=== PATIENT | female | born 1945 | race Caucasian/White ===

== ENCOUNTER → 2016-08-13 | Outpatient (CLI) | payer OTHER | LOC: BHFA 10:45 | PROVIDERS: ATTEND Internal Medicine Cardiovascular Disease | DX: I48.91 Unspecified atrial fibrillation (principal) ==

== ENCOUNTER 2016-12-28 09:11 | Emergency (ER) | payer OTHER, MEDICARE ==
[2016-12-28 09:17] VITALS: RESP 18; TEMP 98.2
--- NOTE | 2016-12-28 09:49 | CPEKG ---
Heart Rate: 67 RR Interval: 896 P-R Interval: 184 QRSD Interval: 96 QT Interval: 416 QTC Interval: 439 P [place]: 52 QRS [place]: -34 T Wave [place]: 96 EKG Severity - ABNORMAL ECG - EKG Impression: SINUS RHYTHM EKG Impression: LEFT AXIS DEVIATION EKG Impression: ABNRM R PROG, CONSIDER ASMI OR LEAD PLACEMENT EKG Impression: BORDERLINE T ABNORMALITIES, ANTERIOR LEADS Electronically Signed By: Katty Trinidad 28-Dec-2016 15:32:24
--- NOTE | 2016-12-28 09:59 | EDPHY ---
H & P Stated Complaint: Intermittent pain R shoulder blade;relieved w/heating pad - Personal History Current Tetanus Diphtheria and Acellular Pertussis (TDAP): Yes Tetanus Vaccine Date: 2009 - Medical/Surgical History Hx Asthma: No Hx Chronic Respiratory Disease: No Hx Diabetes: No Hx Cardiac Disease: Yes Hx Renal Disease: No Hx Cirrhosis: No Hx Alcoholism: No Hx HIV/AIDS: No Hx Splenectomy or Spleen Trauma: No Other PMH: HTN, CAD, Afib, overian cyst removal, ANGEL (cpap); basal cell CA removal from scalp, scalp cyst removed, pre-diabetic; essential tremors (head) - Social History Smoking Status: Never smoked Time Seen by Provider: 12/28/16 09:21 HPI/ROS: CHIEF COMPLAINT: Right subscapular pain times 24 hours HISTORY OF PRESENT ILLNESS: 71-year-old female history of paroxysmal atrial fibrillation, hypertension, awoke yesterday morning with right subscapular pain. The pain is described as intermittent, sharp. It is sometimes reproducible with range of motion; however, sometimes it will occur spontaneously. It is not pleuritic however. She has no radiation of pain. No abdominal pain. No nausea or vomiting. No syncope or near syncope. No headache. No chest pain. No dyspnea. No trauma. No rash no vesicles. No neck pain. PRIMARY CARE PROVIDER:Dr. Filiberto Cornejo REVIEW OF SYSTEMS: A ten point review of systems was performed and is negative with the exception of the items mentioned in the HPI PAST MEDICAL & SURGICAL HISTORY: Paroxysmal atrial fibrillation with ablation in February 2016 at [facility] SOCIAL HISTORY: nonsmoker no drug use . PhD in literature PHYSICAL EXAM (Prior to examination, patient consented to physical exam, hands were washed and my usual and customary physical exam procedures followed) 1) GENERAL: Well-developed, well-nourished, alert and oriented. Appears to be in no acute distress. 2) HEAD: Normocephalic, atraumatic 3) HEENT: Pupils equal, round, reactive to light bilaterally. Sclera anicteric. Nasopharynx, oropharynx, clear, no lesions. Ears bilaterally with normal tympanic membranes. 4) NECK: Full range of motion, no meningeal signs. 5) LUNGS: Clear auscultation bilaterally, no wheezes, no rhonchi, no retractions. 6) HEART: Regular rate and rhythm, no murmur, no heave, no gallop. 7) ABDOMEN: No guarding, no rebound, no focal tenderness, negative McBurney's, negative Means's, negative Rovsing's, negative peritoneal sign, 8) MUSCULOSKELETAL: Moving all extremities, no focal areas of tenderness, no obvious trauma. No peripheral edema or discoloration. 9) BACK: No CVA tenderness, no midline vertebral tenderness, no fluctuance, no step-off, no obvious trauma, no visual or palpable abnormality. I am unable to elicit /reproduce pain with palpation including the subscapular region. There are no lesions, no vesicles. 10) SKIN: No rash, no petechiae. 11) Psychiatric: Patient is oriented X 3, there is no agitation. DIFFERENTIAL DIAGNOSIS: in no particular include but limited to pulmonary embolus, MS, aortic dissection, zoster, muscle strain, radiculopathy (Shantelle,Zane [place]) Constitutional: Initial Vital Signs Temperature (C) 36.8 C 12/28/16 09:12 Heart Rate 69 12/28/16 09:12 Respiratory Rate 18 12/28/16 09:12 Blood Pressure 182/68 H 12/28/16 09:12 O2 Sat (%) 95 12/28/16 09:12 O2 Delivery Mode Room Air Allergies/Adverse Reactions: Beta-Blockers (Beta-Adrenergic Bloc Allergy (Unknown, Verified 12/28/16 09:17) cefuroxime axetil [From Ceftin] Allergy (Unknown, Verified 12/28/16 09:17) clonidine Allergy (Unknown, Verified 12/28/16 09:17) epinephrine Allergy (Verified 12/28/16 09:17) erythromycin base [Erythromycin Base] Allergy (Verified 12/28/16 09:17) ibuprofen Allergy (Verified 12/28/16 09:17) nifedipine [From Procardia] Allergy (Verified 12/28/16 09:17) ofloxacin [From Floxin] Allergy (Verified 12/28/16 09:17) cardiolite (radioactive dye) Allergy (Uncoded 09/28/15 17:07) Home Medications: Medication Instructions Recorded Ascorbic Acid [Vitamin C 500 mg 500 mg PO DAILY20 02/23/13 (*)] Aspirin [Aspirin 81mg (*)] 81 mg PO DAILY 02/23/13 Benazepril HCl [Lotensin (*)] 40 mg PO DAILY 02/23/13 Hydrochlorothiazide [HCTZ (*)] 25 mg PO DAILY 02/23/13 Multivitamins [Multivitamin (*)] 1 each PO DAILY20 02/23/13 Spironolactone [Aldactone 25 MG 12.5 mg PO DAILY 02/23/13 (*)] amLODIPine BESYLATE [Norvasc 5 mg 5 mg PO DAILY 02/23/13 (*)] Cholecalciferol Vit D3 [Vitamin D3 2,000 units PO DAILY20 04/02/13 (*)] Diltiazem [Cardizem 60 MG (*)] 60 mg PO AD PRN 04/02/13 Herbals/Supplements -Info Only 1 ea PO HS 08/14/14 Doxycycline Hyclate 100 mg PO BID #14 tab 02/05/16 Medical Decision Making - Diagnostics EKG Interpretation: 12 lead EKG is interpreted in Trace master View by emergency department physician. (Katty Trinidad) Imaging Results: Imaging Impressions Chest X-Ray 12/28/16 09:29 Impression: No acute abnormality. Chest/Thorax CTA 12/28/16 10:45 Impression: 1. No evidence of thrombopulmonary embolic disease. 2. Clear lungs. No acute process. 3. No bone lesion or fracture to explain right-sided pain. Findings discussed with Emergency Department physician, Joce Pepper PA-C on December 28, 2016 at 1143 hours. Images reviewed myself (Zane Pepper) ED Course/Re-evaluation: 11:00 a.m.: Discussed case Dr. Katty Trinidad in the ER. I discussed with patient her elevated D-dimer. Recommended CT imaging to evaluate possible pulmonary embolus. I spent a period of time discussed the indications risks benefits with the patient. States that several years ago which she develops hives and nausea after receiving IV contrast. She states that she did not have an allergic reaction at that time did not experience respiratory complaints. I offered to premedicate with Benadryl and antiemetic which she declines. She verbalizes understanding and acceptance of the indications risks benefits and consents to CT imaging 1:14 p.m.: Patient has been re-evaluated with serial exams. Was also seen exam by Dr. Katty Trinidad in the emergency department. The patient and I discussed her negative CT angiogram negative for pulmonary embolus, negative for aortic dissection. We also discussed her troponin which is negative at 24 hours after her initial presenting symptoms. She also has normal sinus rhythm although she does have a history of paroxysmal atrial fibrillation with ablation in the past. I think that cardiac etiology such as myocardial infarction is less than likely in this patient. She also inquired about whether symptoms could be secondary to hepatic dysfunction or pancreatic dysfunction. She has had no complaints of abdominal pain, no nausea no vomiting has normal LFTs and lipase. I therefore think that these are less than likely. We discussed possibility of acute muscular strain, possibility of early zoster with no clinical/visible manifestation. I think the patient can be discharged home with usual customary precautions. She feels comfortable with this plan. (Zane Pepper) This patient was evaluated and managed by the physician circulation assistant, in conjunction with me. I am the secondary supervising physician. I agree with the plan of care. The patient reports right lateral subscapular pain, no trauma, not pleuritic. Evaluation includes EKG and troponin--no evidence of ACS. D dimer elevated, CTA of chest negative for PE. No evidence of PTX OR PNA. At the time of my interview and exam she is resting comfortably. Heart with RRR, lungs CTA, abdomen soft and nontender. I agree with the ED evaluation. (Katty Trinidad) - Data Points Laboratory Results: Laboratory Results 12/28/16 09:56 12/28/16 09:56 Departure - Departure Disposition: Home, Routine, Self-Care Clinical Impression: Pain of right scapula Condition: Good Instructions: Back Pain (ED) Additional Instructions: Return to the emergency department if you develop chest pain, shortness of breath, abdominal pain, nausea, vomiting, rash or any other symptoms that concern you. Referrals: Filiberto Cornejo MD [Primary Care Provider] - 1-2 days without fail
[2016-12-28 10:02] LABS: % IMMATURE GRANULYOCYTES 0.7 % (0.0-1.1); ABSOLUTE IMMATURE GRANULOCYTES 0.09 10^3/uL (0.00-0.10); ADD DIFF? NO; ADD MORPH? NO; ADD SCAN? NO; ATYPICAL LYMPHOCYTE FLAG 10 (0-99); FRAGMENT RBC FLAG 0 (0-99); HEMATOCRIT 45.1 % (38.0-47.0); HEMOGLOBIN 15.3 g/dL (12.6-16.3); LEFT SHIFT FLG 0 (0-99); LIPEMIA HEMOLYSIS FLAG 90 (0-99); MEAN CELL HEMOGLOBIN 29.9 pg (27.9-34.1); MEAN CELL HEMOGLOBIN CONCENTR. 33.9 g/dL (32.4-36.7); MEAN CELL VOLUME 88.1 fL (81.5-99.8); MEAN PLATELET VOLUME 9.1 fL (8.7-11.7); PLATELET CLUMPS FLAG 0 (0-99); PLATELET COUNT 305 10^3/uL (150-400); RED BLOOD CELL COUNT 5.12 10^6/uL (4.18-5.33); RED CELL DISTRIBUTION WIDTH 13.4 % (11.5-15.2)
[2016-12-28 10:34] LABS: ALANINE AMINOTRANSFERASE 30 IU/L (9-52); ALBUMIN 4.6 g/dL (3.5-5.0); ALKALINE PHOSPHATASE 84 IU/L (38-126); ANION GAP 15 mEq/L (8-16); ASPARTATE AMINOTRANSFERASE 24 IU/L (14-46); BILIRUBIN,TOTAL 0.5 mg/dL (0.1-1.4); BILIRUBIN-CONJUGATED 0.2 mg/dL (0.0-0.5); BILIRUBIN-UNCONJUGATED 0.3 mg/dL (0.0-1.1); CALCIUM 10.1 mg/dL (8.5-10.4); CARBON DIOXIDE 22 mEq/l (22-31); CHLORIDE 102 mEq/L (97-110); CREATININE 0.6 mg/dL (0.6-1.0); GLOMERULAR FILTRATION RATE > 60; GLUCOSE 158 mg/dL (70-100); POTASSIUM 3.8 mEq/L (3.5-5.2); SODIUM 139 mEq/L (134-144); TOTAL PROTEIN 8.4 g/dL (6.3-8.2)
[2016-12-28 10:45] LABS: TROPONIN I < 0.012 ng/mL (0-0.034)
[2016-12-28] MEDS ORDERED: IOPAMIDOL (ISOVUE 370) 100 ML BTL IV ONE (10:59)
[2016-12-28 13:36] VITALS: BP 151/62; PULSE 58; O2SAT 91
== END 2016-12-28 13:36 | disposition home or self-care (01) ==
DX: M25.511 Pain in right shoulder (principal); I10 Essential (primary) hypertension; I25.10 Atherosclerotic heart disease of native coronary artery without angina pectoris; Z79.82 Long term (current) use of aspirin; Z85.828 Personal history of other malignant neoplasm of skin
CPT/HCPCS: 71020; 71275; 93005; 99285; Q9967

== ENCOUNTER 2017-03-05 07:54 | Emergency (ER) | payer OTHER, MEDICARE ==
--- NOTE | 2017-03-05 08:09 | CPEKG ---
Heart Rate: 131 RR Interval: 458 P-R Interval: 79 QRSD Interval: 82 QT Interval: 308 QTC Interval: 455 P [place]: 0 QRS [place]: -57 T Wave [place]: 144 EKG Severity - ABNORMAL ECG - EKG Impression: SINUS TACHYCARDIA EKG Impression: PROBABLE INFERIOR INFARCT, OLD EKG Impression: CONSIDER ANTERIOR INFARCT EKG Impression: REPOL ABNRM SUGGESTS ISCHEMIA, DIFFUSE LEADS Electronically Signed By: Irene Hernández 05-Mar-2017 15:36:37
--- NOTE | 2017-03-05 08:29 | EDPHY ---
H & P Time Seen by Provider: 03/05/17 08:16 HPI/ROS: CHIEF COMPLAINT: AFib HISTORY OF PRESENT ILLNESS: The patient is a 71-year-old female with a history of AFib who presents emergency department with palpitations. Patient states that she intermittently goes into atrial fibrillation. Last night at approximately 9:30 a.m. she developed palpitations in atrial fibrillation. She took diltiazem 30 mg orally. This is her rescue medication and she follow the instructions of her chief wheelage clerk. At 10:30 a.m. she still was in atrial fibrillation and she took an additional diltiazem 30 mg orally. At 11:30 a.m. she continued to be in atrial fibrillation and took diltiazem 60 mg orally. She then converted at midnight. She woke at 3:20 a.m. again with palpitations and AFib. She spoke with Dr. schultz on the phone. He instructed her to take diltiazem 30 mg orally. She subsequently converted. She woke this morning at 6 :20 a.m.. Soon after waking she again went back into atrial fibrillation with palpitations. She has no chest pain. She describes mild hand tingling. No nausea or vomiting. No shortness of breath. Patient states that she had an ablation last year. REVIEW OF SYSTEMS: My complete review of systems is negative except as mentioned in the HPI. Past Medical/Surgical History: Includes hypertension, coronary artery disease, AFib, ovarian cyst, basal cell carcinoma, prediabetes, central tremors Past surgical history: Includes ovarian cyst surgery Social history: The patient does not smoke. Smoking Status: Never smoked Physical Exam: 36.8, 166/119, 127, 17, 93% on room air GENERAL: Well-appearing, in no acute distress, alert. HEENT: Eyes normal to inspection, normal pharynx, no signs of dehydration. NECK: No thyromegaly, no lymphadenopathy, supple. RESPIRATORY: Clear to auscultation bilaterally, no rales, rhonchi or wheezing. CVS: the regular rhythm and tachycardia, no rubs, murmurs, or gallops. ABDOMEN: Soft, nontender, nondistended, no organomegaly. BACK: Normal to inspection, no CVA tenderness. SKIN: Normal color, no rash, warm, dry. No pallor. EXTREMITIES: No pedal edema, no calf tenderness, no Homans sign or cords, no joint swelling. NEURO/PSYCH: Alert and oriented, normal mood and affect, normal motor sensory exam. No obvious cranial nerve deficit. Constitutional: Initial Vital Signs Temperature (C) 36.8 C 03/05/17 07:57 Heart Rate 127 H 03/05/17 07:57 Respiratory Rate 17 03/05/17 07:57 Blood Pressure 166/119 H 03/05/17 07:57 O2 Sat (%) 93 03/05/17 07:57 O2 Delivery Mode Room Air Allergies/Adverse Reactions: Beta-Blockers (Beta-Adrenergic Bloc Allergy (Unknown, Verified 12/28/16 09:17) cefuroxime axetil [From Ceftin] Allergy (Unknown, Verified 12/28/16 09:17) clonidine Allergy (Unknown, Verified 12/28/16 09:17) epinephrine Allergy (Verified 12/28/16 09:17) erythromycin base [Erythromycin Base] Allergy (Verified 12/28/16 09:17) ibuprofen Allergy (Verified 12/28/16 09:17) nifedipine [From Procardia] Allergy (Verified 12/28/16 09:17) ofloxacin [From Floxin] Allergy (Verified 12/28/16 09:17) cardiolite (radioactive dye) Allergy (Uncoded 09/28/15 17:07) Home Medications: Medication Instructions Recorded Ascorbic Acid [Vitamin C 500 mg 500 mg PO DAILY20 02/23/13 (*)] Aspirin [Aspirin 81mg (*)] 81 mg PO DAILY 02/23/13 Benazepril HCl [Lotensin (*)] 40 mg PO DAILY 02/23/13 Hydrochlorothiazide [HCTZ (*)] 25 mg PO DAILY 02/23/13 Multivitamins [Multivitamin (*)] 1 each PO DAILY20 02/23/13 Spironolactone [Aldactone 25 MG 12.5 mg PO DAILY 02/23/13 (*)] amLODIPine BESYLATE [Norvasc 5 mg 5 mg PO DAILY 02/23/13 (*)] Cholecalciferol Vit D3 [Vitamin D3 2,000 units PO DAILY20 04/02/13 (*)] Diltiazem [Cardizem 60 MG (*)] 60 mg PO AD PRN 04/02/13 Herbals/Supplements -Info Only 1 ea PO HS 08/14/14 Doxycycline Hyclate 100 mg PO BID #14 tab 02/05/16 Apixaban [Eliquis] 5 mg PO BID #30 tab 03/05/17 Medical Decision Making ED Course/Re-evaluation: In the emergency department I discussed possible etiologies with the patient. Laboratory studies and EKG were obtained. Patient was given aspirin orally. EKG showed irregular tachycardia at 131. There was notable ST depression in I, II, V4-V6 Patient had a fairly regular rhythm that appeared to be atrial flutter rather than atrial fibrillation. I paged Cardiology to discuss their preference as the patient has already received [address] Hui came to the emergency department to evaluate the patient. By the time he arrived the patient had converted to sinus rhythm. He recommend the patient have further workup. Informed that he needs to return to his clinic and the PA would return to the emergency department for further evaluation. I discussed this update with the patient 1000: Dr. Hui return to the emergency department to evaluate the patient. 1010: I discussed the case with Dr. Hui. He recommends discharge for the patient. She has a follow-up appoint with Dr. Price. He recommend the patient start on Eliquis 5 mg twice daily. I discussed the plan with the patient. She is well formed. She agrees with the plan. She states she understood the discussion and plan with Dr. Hui. She was given a prescription for Eliquis. Differential Diagnosis: My differential includes but is not limited to atrial fibrillation, atrial flutter, SVT, ACS, acute IL, electrolyte abnormality, sugar abnormality - Data Points Laboratory Results: Laboratory Results 03/05/17 08:10 03/05/17 08:10 03/05/17 03/05/17 03/05/17 08:10 08:10 08:10 WBC 12.57 10^3/uL H 10^3/uL (3.80-9.50) RBC 5.66 10^6/uL H 10^6/uL (4.18-5.33) Hgb 16.6 g/dL H g/dL (12.6-16.3) Hct 49.8 % H % (38.0-47.0) MCV 88.0 fL fL (81.5-99.8) MCH 29.3 pg pg (27.9-34.1) MCHC 33.3 g/dL g/dL (32.4-36.7) RDW 13.3 % % (11.5-15.2) Plt Count 353 10^3/uL 10^3/uL (150-400) MPV 9.5 fL fL (8.7-11.7) Neut % (Auto) 76.3 % H % (39.3-74.2) Lymph % (Auto) 16.1 % % (15.0-45.0) [place] % (Auto) 5.9 % % (4.5-13.0) Eos % (Auto) 0.6 % % (0.6-7.6) Baso % (Auto) 0.6 % % (0.3-1.7) Nucleat RBC Rel Count 0.0 % % (0.0-0.2) Absolute Neuts (auto) 9.59 10^3/uL H 10^3/uL (1.70-6.50) Absolute Lymphs (auto) 2.03 10^3/uL 10^3/uL (1.00-3.00) Absolute Monos (auto) 0.74 10^3/uL 10^3/uL (0.30-0.80) Absolute Eos (auto) 0.08 10^3/uL 10^3/uL (0.03-0.40) Absolute Basos (auto) 0.07 10^3/uL 10^3/uL (0.02-0.10) Absolute Nucleated RBC 0.00 10^3/uL 10^3/uL (0-0.01) Immature Gran % 0.5 % % (0.0-1.1) Immature Gran # 0.06 10^3/uL 10^3/uL (0.00-0.10) PT 13.2 SEC SEC (12.0-15.0) INR 1.01 (0.83-1.16) APTT 34.2 SEC SEC (23.0-38.0) Sodium 134 mEq/L mEq/L (134-144) Potassium 3.8 mEq/L mEq/L (3.5-5.2) Chloride 95 mEq/L L mEq/L (97-110) Carbon Dioxide 24 mEq/l mEq/l (22-31) Anion Gap 15 mEq/L mEq/L (8-16) BUN 13 mg/dL mg/dL (7-23) Creatinine 0.6 mg/dL mg/dL (0.6-1.0) Estimated GFR > 60 Glucose 143 mg/dL H mg/dL (70-100) Calcium 10.3 mg/dL mg/dL (8.5-10.4) Troponin I < 0.012 ng/mL ng/mL (0.000-0.034) Medications Given: Discontinued Medications Aspirin (Aspirin) 324 mg PO EDNOW ONE Stop: 03/05/17 08:53 Last Admin: 03/05/17 08:57 Dose: 324 mg Sodium Chloride (Ns) 500 mls @ 1,000 mls/hr IV EDNOW ONE PRN Reason: Protocol Stop: 03/05/17 09:21 Last Admin: 03/05/17 08:57 Dose: 500 mls Departure - Departure Disposition: Home, Routine, Self-Care Clinical Impression: Atrial flutter Qualifiers: Atrial flutter type: typical Qualified Code(s): I48.3 - Typical atrial flutter Atrial fibrillation Qualifiers: Atrial fibrillation type: unspecified Qualified Code(s): I48.91 - Unspecified atrial fibrillation Condition: Good Instructions: A-fib (Atrial Fibrillation) (ED) Additional Instructions: Return with increasing chest pain, shortness of breath, or any other concerns. Take your Eliquis daily as instructed by Dr. Hui. You need close follow-up with Dr. Sanchez Referrals: Filiberto Cornejo MD [Primary Care Provider] - As per Instructions Shiv Sanchez MD [Medical Doctor] - 5-7 days, call for appt. Prescriptions: Apixaban [Eliquis] 5 mg PO BID #30 tab
[2017-03-05] MEDS ORDERED: ASPIRIN 81 MG CHEWABLE TAB PO ONE (08:52)
[2017-03-05] MEDS ORDERED: NS 500 ML IV ONE (08:52)
[2017-03-05 08:58] LABS: % IMMATURE GRANULYOCYTES 0.5 % (0.0-1.1); ABSOLUTE IMMATURE GRANULOCYTES 0.06 10^3/uL (0.00-0.10); ADD DIFF? NO; ADD MORPH? NO; ADD SCAN? NO; ATYPICAL LYMPHOCYTE FLAG 0 (0-99); FRAGMENT RBC FLAG 0 (0-99); HEMATOCRIT 49.8 % (38.0-47.0); HEMOGLOBIN 16.6 g/dL (12.6-16.3); LEFT SHIFT FLG 0 (0-99); LIPEMIA HEMOLYSIS FLAG 80 (0-99); MEAN CELL HEMOGLOBIN 29.3 pg (27.9-34.1); MEAN CELL HEMOGLOBIN CONCENTR. 33.3 g/dL (32.4-36.7); MEAN PLATELET VOLUME 9.5 fL (8.7-11.7); PLATELET CLUMPS FLAG 10 (0-99); PLATELET COUNT 353 10^3/uL (150-400); RED BLOOD CELL COUNT 5.66 10^6/uL (4.18-5.33); RED CELL DISTRIBUTION WIDTH 13.3 % (11.5-15.2)
[2017-03-05 09:04] LABS: ANION GAP 15 mEq/L (8-16); CALCIUM 10.3 mg/dL (8.5-10.4); CARBON DIOXIDE 24 mEq/l (22-31); CHLORIDE 95 mEq/L (97-110); CREATININE 0.6 mg/dL (0.6-1.0); GLOMERULAR FILTRATION RATE > 60; GLUCOSE 143 mg/dL (70-100); POTASSIUM 3.8 mEq/L (3.5-5.2); SODIUM 134 mEq/L (134-144)
[2017-03-05 09:08] LABS: INR 1.01 (0.83-1.16); PROTIME(PATIENT) 13.2 SEC (12.0-15.0)
[2017-03-05 09:09] LABS: APTT 34.2 SEC (23.0-38.0)
[2017-03-05 09:16] LABS: TROPONIN I < 0.012 ng/mL (0.000-0.034)
[2017-03-05 09:22] VITALS: TEMP 98.2
[2017-03-05 11:02] VITALS: BP 153/55; PULSE 52; RESP 15; O2SAT 94
--- NOTE | 2017-03-05 21:48 | GCON ---
[f rep st] CONSULTATION DATE OF CONSULTATION: 03/05/2017 CHIEF COMPLAINT: Atrial flutter fibrillation. HISTORY OF PRESENT ILLNESS: This is a 71-year-old female with past history of atrial fibrillation, who presented to the emergency room with palpitation. Patient states that, over the past few hours, she has been having palpitations on and off. She took diltiazem 30 mg as per her instruction. However, she kept going in and out of atrial fibrillation and, hence, came to the emergency room where she was able to fall asleep. She converted while she was asleep. When she woke up in the morning, she went back into atrial fibrillation only to reconvert into SR. The patient has had evaluation at [facility] and is under the care of Dr. Sanchez. The patient had an ablation under Dr. Jorgensen last February after which she was on oral anticoagulation for 5 months. Since then, she has not had any atrial fibrillation related concerns. This is the first episode since then. The patient denied any presyncope or syncope associated with it. No chest pain, though she was bothered by her palpitations. REVIEW OF SYSTEMS: Negative other than mentioned above. PAST MEDICAL HISTORY: Hypertension, coronary artery disease, atrial fibrillation, status post PVI. PAST SURGICAL HISTORY: Ovarian cyst surgery. SOCIAL HISTORY: Never smoker. No significant alcohol use. PHYSICAL EXAMINATION: VITAL SIGNS: Temperature 36.8, blood pressure 160/90, respiratory rate 16, heart rate 68. GENERAL: At the time of my exam, well- appearing patient in no acute distress. Alert and oriented. HEENT: Normal to inspection. Normal pharynx. No signs of dehydration. No thyromegaly. No lymphadenopathy. No JVD. CHEST: Good air entry bilaterally equal. No rales or rhonchi. HEART: Regular. No S3. No murmurs. ABDOMEN: Soft, nontender. No guarding, rigidity. Bowel sounds present. No hepatosplenomegaly. SKIN: Normal color. No rash. Warm, dry. No pallor. EXTREMITIES: No pedal edema. No calf tenderness. No Homans sign. No joint swelling. ALLERGIES: Beta blockers, Ceftin, clonidine, epinephrine, erythromycin, ibuprofen, nifedipine, ofloxacin, Cardiolite. HOME MEDICATIONS: Vitamin C, aspirin, benazepril, hydrochlorothiazide, multivitamin, amlodipine, cholecalciferol, herbal supplements, doxycycline, and Eliquis. DIAGNOSTIC TESTING: EKG: One EKG shows atrial flutter with 2-1 conduction, another telemetry strip shows atrial fibrillation, and the third one shows sinus rhythm. IMPRESSION AND PLAN: This is a 71-year-old female with a past history of atrial fibrillation/atrial flutter, who comes in, who had ablation about a year back and has had recurrent fibrillation. At this point in time, considering her CHADS-VASc score of 2, I would recommend oral anticoagulation. Furthermore , currently the patient is converted into sinus rhythm; however, considering her recurrence of atrial fibrillation, I believe that antiarrhythmics would be needed. However, considering her multiple allergies, this needs to be a more prolonged discussion in the clinic. I have offered to see her in the clinic myself or follow up with Dr. Sanchez. The patient has an appointment with Dr. Sanchez, and she will keep that appointment. Another ablation may be a good option for the patient considering her flutter as well as fibrillation. The patient has been explained this and understands this and she will follow up with Dr. Sanchez and make further plan. Thank you for letting me participate in the patient's care. . /[id number]/MODL MTDD
== END 2017-03-05 11:07 | disposition home or self-care (01) ==
DX: I48.3 Typical atrial flutter (principal); I48.91 Unspecified atrial fibrillation; I10 Essential (primary) hypertension; I25.10 Atherosclerotic heart disease of native coronary artery without angina pectoris; E86.9 Volume depletion, unspecified; Z79.01 Long term (current) use of anticoagulants; Z79.82 Long term (current) use of aspirin; Z85.828 Personal history of other malignant neoplasm of skin

== ENCOUNTER → 2017-03-23 | Outpatient (CLI) | payer OTHER, MEDICARE | LOC: BHFA 10:30 | PROVIDERS: ATTEND Internal Medicine Cardiovascular Disease | DX: R55 Syncope and collapse (principal); I48.91 Unspecified atrial fibrillation ==

== ENCOUNTER → 2017-06-10 | Outpatient (CLI) | payer OTHER, MEDICARE | LOC: BHFA 11:30 | PROVIDERS: ATTEND Internal Medicine Cardiovascular Disease | DX: I25.10 Atherosclerotic heart disease of native coronary artery without angina pectoris (principal); I48.91 Unspecified atrial fibrillation ==

== ENCOUNTER → 2017-07-21 | Outpatient (CLI) | payer OTHER, MEDICARE | LOC: FCPNEURO 20:00 | PROVIDERS: ATTEND Psychiatry & Neurology Sleep Medicine | DX: G47.33 Obstructive sleep apnea (adult) (pediatric) (principal) ==

== ENCOUNTER → 2017-08-16 | Outpatient (CLI) | payer OTHER, MEDICARE | LOC: BHFA 10:00 | PROVIDERS: ATTEND Internal Medicine Cardiovascular Disease | DX: I48.91 Unspecified atrial fibrillation (principal) ==

== ENCOUNTER → 2017-09-20 | Outpatient (CLI) | payer OTHER, MEDICARE | LOC: BHFA 10:00 | PROVIDERS: ATTEND Internal Medicine Cardiovascular Disease | DX: I48.91 Unspecified atrial fibrillation (principal); R00.2 Palpitations ==

== ENCOUNTER 2018-02-17 07:16 | Emergency (ER) | payer OTHER, MEDICARE ==
--- NOTE | 2018-02-17 07:30 | EDPHY ---
HPI/HX/ROS/PE/MDM Narrative: CHIEF COMPLAINT: Atrial fibrillation HPI: This patient is an anticoagulated (Eliquis) 72 y/o female with a long-standing history of paroxysmal atrial fibrillation s/p ablation in 2016. She presents today with recurrent a-fib. She woke around 1am to go to the restroom, and when she got back in bed, she noted her heart rate was elevated. She checked her cardiac som at home and noted she was in atrial fibrillation around 1:30am. She took 120mg diltiazem as directed by her cardiologists. She endorses nausea, which does not generally accompany her atria fibrillation. She additionally complains of rhinorrhea and abnormal bowel movements; soft hooker stools, no melena or hematochezia. No fever, chest pain, shortness of breath. Of note, the patient states she becomes bradycardic in the 40s if she takes Diltiazem regularly, so she is only prescribed this medication for use when she notes she is in atrial fibrillation. She does not take beta-blockers as these induced unwanted side effects including personality changes and mental fog. REVIEW OF SYSTEMS: A comprehensive 10 system review of systems is otherwise negative aside from elements mentioned in the history of present illness and medical decision making. PMH: Atrial fibrillation, hypertension, CAD, ANGEL, pre-diabetes, essential tremor. History of basal cell carcinoma on scalp s/p removal. SOCIAL HISTORY: . at bedside. Retired. Lives in [place]. PHYSICAL EXAM: General:Patient is alert, in no acute distress. ENT:Eyes are normal to inspection. ENT inspection normal. Neck: Normal inspection. Full range of motion. Respiratory:No respiratory distress. Breath sounds normal bilaterally. Cardiovascular: Irregularly irregular tachycardia, ventricular rate around 115. Strong peripheral pulses. Normal cap refill. Abdomen:The abdomen is nontender to palpation. There are no peritoneal signs. There are normal bowel sounds. Back: Normal to inspection. No tenderness to palpation. Skin: Normal color. No rash. Warm and dry. Extremities: Normal appearance. Full range of motion. Neuro: Oriented x3. Normal motor function. Normal sensory function. ED Course: 72 y/o female with history of paroxysmal afib presents with a recurrence of her atrial fibrillation. Ventricular rate around 115. Plan for EKG, labs including CBC, chemistries, UA, Troponin. EKG was ordered and interpreted by myself. Please see [employer] system for official reading. Atrial fibrillation. 08:[address] Juárez, summer analyst. He is comfortable with outpatient followup for this patient. Plan to d/c home in good condition. She generally converts spontaneously. She will come back tomorrow if her symptoms persist. 09:05 Reassessed patient. Discussed laboratory results and my consultation with Dr. Juárez. She is comfortable with the plan for outpatient followup. She would like to try a small dose of Diltiazem prior to discharge. Plan to administer 5mg IV Diltiazem. 10:00 Patient is now in sinus rhythm, rate 50. Plan for EKG. EKG was ordered and interpreted by myself. Sinus bradycardia. Please see [employer] system for official reading. 10:52 Reassessed patient. She is feeling better now that she has converted to sinus rhythm. Plan to discharge home in good condition. Follow up and return precautions discussed. She will return for recurrent persisting symptoms. She is comfortable with this plan. - Data Points Laboratory Results: Laboratory Results 02/17/18 07:40 02/17/18 07:40 02/17/18 02/17/18 02/17/18 08:38 07:51 07:40 WBC RBC Hgb Hct MCV MCH MCHC RDW Plt Count MPV Neut % (Auto) Lymph % (Auto) [place] % (Auto) Eos % (Auto) Baso % (Auto) Nucleat RBC Rel Count Absolute Neuts (auto) Absolute Lymphs (auto) Absolute Monos (auto) Absolute Eos (auto) Absolute Basos (auto) Absolute Nucleated RBC Immature Gran % Immature Gran # Sodium 134 mEq/L L mEq/L (135-145) Potassium 3.7 mEq/L mEq/L (3.3-5.0) Chloride 96 mEq/L L mEq/L (97-110) Carbon Dioxide 24 mEq/l mEq/l (22-31) Anion Gap 14 mEq/L mEq/L (8-16) BUN 10 mg/dL mg/dL (7-23) Creatinine 0.5 mg/dL L mg/dL (0.6-1.0) Estimated GFR > 60 Glucose 177 mg/dL H mg/dL (70-100) Calcium 9.9 mg/dL mg/dL (8.5-10.4) POC Troponin I 0.00 ng/mL ng/mL (0.00-0.08) Urine Color PALE YELLOW Urine Appearance CLEAR Urine pH 7.0 (5.0-7.5) Ur Specific [place] 1.009 (1.002-1.030) Urine Protein NEGATIVE (NEGATIVE) Urine Ketones NEGATIVE (NEGATIVE) Urine Blood NEGATIVE (NEGATIVE) Urine Nitrate NEGATIVE (NEGATIVE) Urine Bilirubin NEGATIVE (NEGATIVE) Urine Urobilinogen NEGATIVE EU EU (0.2-1.0) Ur Leukocyte Esterase NEGATIVE (NEGATIVE) Urine RBC 1-3 /hpf /hpf (0-3) Urine WBC 1-3 /hpf /hpf (0-3) Ur Epithelial Cells TRACE /lpf /lpf (NONE-1+) Urine Mucus TRACE /lpf /lpf (NONE-1+) Urine Glucose 1+ H (NEGATIVE) 02/17/18 07:40 WBC 13.73 10^3/uL H 10^3/uL (3.80-9.50) RBC 5.59 10^6/uL H 10^6/uL (4.18-5.33) Hgb 16.5 g/dL H g/dL (12.6-16.3) Hct 48.8 % H % (38.0-47.0) MCV 87.3 fL fL (81.5-99.8) MCH 29.5 pg pg (27.9-34.1) MCHC 33.8 g/dL g/dL (32.4-36.7) RDW 13.2 % % (11.5-15.2) Plt Count 333 10^3/uL 10^3/uL (150-400) MPV 9.1 fL fL (8.7-11.7) Neut % (Auto) 83.7 % H % (39.3-74.2) Lymph % (Auto) 11.5 % L % (15.0-45.0) [place] % (Auto) 3.9 % L % (4.5-13.0) Eos % (Auto) 0.2 % L % (0.6-7.6) Baso % (Auto) 0.4 % % (0.3-1.7) Nucleat RBC Rel Count 0.0 % % (0.0-0.2) Absolute Neuts (auto) 11.48 10^3/uL H 10^3/uL (1.70-6.50) Absolute Lymphs (auto) 1.58 10^3/uL 10^3/uL (1.00-3.00) Absolute Monos (auto) 0.54 10^3/uL 10^3/uL (0.30-0.80) Absolute Eos (auto) 0.03 10^3/uL 10^3/uL (0.03-0.40) Absolute Basos (auto) 0.06 10^3/uL 10^3/uL (0.02-0.10) Absolute Nucleated RBC 0.00 10^3/uL 10^3/uL (0-0.01) Immature Gran % 0.3 % % (0.0-1.1) Immature Gran # 0.04 10^3/uL 10^3/uL (0.00-0.10) Sodium Potassium Chloride Carbon Dioxide Anion Gap BUN Creatinine Estimated GFR Glucose Calcium POC Troponin I Urine Color Urine Appearance Urine pH Ur Specific [place] Urine Protein Urine Ketones Urine Blood Urine Nitrate Urine Bilirubin Urine Urobilinogen Ur Leukocyte Esterase Urine RBC Urine WBC Ur Epithelial Cells Urine Mucus Urine Glucose Medications Given: Discontinued Medications Diltiazem HCl (Cardizem 25 Mg/5 Ml Vial) 5 mg IVP EDNOW ONE Stop: 02/17/18 09:11 Last Admin: 02/17/18 09:21 Dose: 5 mg Sodium Chloride (Ns) 250 mls @ 0 mls/hr IV EDNOW ONE; Wide Open PRN Reason: Protocol Stop: 02/17/18 07:47 Last Admin: 02/17/18 07:48 Dose: 250 mls Point of Care Test Results: Chemistry 02/17/18 07:51 POC Troponin I 0.00 ng/mL ng/mL (0.00-0.08) General Time Seen by Provider: 02/17/18 07:27 Initial Vital Signs: Initial Vital Signs Temperature (C) 36.6 C 02/17/18 07:18 Heart Rate 120 H 02/17/18 07:18 Respiratory Rate 18 02/17/18 07:18 Blood Pressure 136/73 H 02/17/18 07:18 O2 Sat (%) 92 02/17/18 07:18 O2 Delivery Mode Room Air Allergies/Adverse Reactions: Beta-Blockers (Beta-Adrenergic Bloc Allergy (Unknown, Verified 02/17/18 07:16) cefuroxime axetil [From Ceftin] Allergy (Unknown, Verified 02/17/18 07:16) clonidine Allergy (Unknown, Verified 02/17/18 07:16) epinephrine Allergy (Verified 02/17/18 07:16) erythromycin base [Erythromycin Base] Allergy (Verified 02/17/18 07:16) ibuprofen Allergy (Verified 02/17/18 07:16) nifedipine [From Procardia] Allergy (Verified 02/17/18 07:16) ofloxacin [From Floxin] Allergy (Verified 02/17/18 07:16) cardiolite (radioactive dye) Allergy (Uncoded 09/28/15 17:07) Home Medications: Medication Instructions Recorded Ascorbic Acid [Vitamin C 500 mg 500 mg PO DAILY20 02/23/13 (*)] Aspirin [Aspirin 81mg (*)] 81 mg PO DAILY 02/23/13 Benazepril HCl [Lotensin (*)] 40 mg PO DAILY 02/23/13 Hydrochlorothiazide [HCTZ (*)] 25 mg PO DAILY 02/23/13 Multivitamins [Multivitamin (*)] 1 each PO DAILY20 02/23/13 Spironolactone [Aldactone 25 MG 12.5 mg PO DAILY 02/23/13 (*)] amLODIPine BESYLATE [Norvasc 5 mg 5 mg PO DAILY 02/23/13 (*)] Cholecalciferol Vit D3 [Vitamin D3 2,000 units PO DAILY20 04/02/13 (*)] Diltiazem [Cardizem 60 MG (*)] 60 mg PO AD PRN 04/02/13 Herbals/Supplements -Info Only 1 ea PO HS 08/14/14 Doxycycline Hyclate 100 mg PO BID #14 tab 02/05/16 Apixaban [Eliquis] 5 mg PO BID #30 tab 03/05/17 Departure - Departure Disposition: Home, Routine, Self-Care Clinical Impression: Atrial fibrillation Qualifiers: Atrial fibrillation type: paroxysmal Qualified Code(s): I48.0 - Paroxysmal atrial fibrillation Condition: Good Instructions: A-fib (Atrial Fibrillation) (ED) Additional Instructions: 1. Continue taking your rate control medications as prescribed. 2. Follow up with your summer analyst within 2-3 days. 3. Return to the emergency department if symptoms recur and persist until tomorrow or if you develop chest pain, shortness of breath, lightheadedness, rapid heart rate over 120 bpm, or other worsening of condition or further concerns. If your symptoms recurs and persist until tomorrow and you return to the emergency department, please do not eat or drink anything in the morning prior to your arrival here. Referrals: Filiberto Cornejo MD [Primary Care Provider] - As per Instructions Shiv Sanchez MD [Medical Doctor] - As per Instructions Report Scribed for: Joce Dang Report Scribed by: Arpita Harper Date of Report: 02/17/18 Time of Report: 07:44 Physician Review and Approval Statement: Portions of this note were transcribed by an ED scribe. I personally performed the history, physical exam, and medical decision making; and confirm the accuracy of the information in the transcribed note.
[2018-02-17] MEDS ORDERED: NS 250 ML IV ONE (07:46)
[2018-02-17 07:57] LABS: PLATELET COUNT 333 10^3/uL (150-400)
[2018-02-17] MEDS ORDERED: DILTIAZEM 25 MG/5 ML VIAL IVP ONE (09:10)
[2018-02-17 11:09] VITALS: BP 124/55
--- NOTE | 2018-02-17 14:24 | CPEKG ---
Test Reason : OPEN Blood Pressure : / mmHG Vent. Rate : 048 BPM Atrial Rate : 048 BPM P-R Int : 140 ms QRS Dur : 104 ms QT Int : 468 ms P-R-T Axes : 000 -34 047 degrees QTc Int : 419 ms Sinus bradycardia Left axis deviation Anteroseptal infarct, old Confirmed by Joce Dang ([id number]) on 02/17/2018 2:23:31 PM Referred By: Confirmed By:Joce Dang
--- NOTE | 2018-02-21 05:47 | CPEKG ---
Test Reason : OPEN Blood Pressure : / mmHG Vent. Rate : 117 BPM Atrial Rate : 119 BPM P-R Int : 106 ms QRS Dur : 103 ms QT Int : 348 ms P-R-T Axes : 098 -48 146 degrees QTc Int : 486 ms Atrial flutter with predominant 2:1 AV block Inferior infarct, old Anterior infarct, old Lateral leads are also involved Confirmed by Ezequiel Barclay ([id number]) on 02/21/2018 5:47:00 AM Referred By: Confirmed By:Ezequiel Barclay
== END 2018-02-17 11:10 | disposition home or self-care (01) ==
DX: I48.0 Paroxysmal atrial fibrillation (principal); Z79.01 Long term (current) use of anticoagulants
CPT/HCPCS: 84484-PO; 96374

== ENCOUNTER → 2018-06-24 | Outpatient (CLI) | payer OTHER, MEDICARE | LOC: BHFA 10:30 | PROVIDERS: ATTEND Internal Medicine Interventional Cardiology | DX: I48.91 Unspecified atrial fibrillation (principal); R00.2 Palpitations ==